=== PATIENT | female | born 1970 | race Two or more races ===

== ENCOUNTER 2023-03-28 07:18 | Emergency (ER) | payer OTHER ==
[~2023-03-28] VITALS: Ht 154.9 cm; Wt 84.0 kg
[2023-03-28 07:49] VITALS: BP 180/95; PULSE 89; RESP 16; TEMP 97.9; O2SAT 96
[2023-03-28] MEDS ORDERED: CEPH500C PO (08:24)
== END 2023-03-28 08:46 | disposition home or self-care (01) ==
LOC: ER 07:18
DX: S61.214A Laceration without foreign body of right ring finger without damage to nail, initial encounter (principal); D18.01 Hemangioma of skin and subcutaneous tissue; X58.XXXA Exposure to other specified factors, initial encounter; Y93.89 Activity, other specified; Y92.89 Other specified places as the place of occurrence of the external cause; Y99.8 Other external cause status
CPT/HCPCS: 12001